=== PATIENT | male | born 1965 | race Caucasian/White ===

== ENCOUNTER 2019-03-12 20:41 | Emergency (ER) | payer OTHER ==
[~2019-03-12] VITALS: Ht 177.8 cm; Wt 86.2 kg
== END 2019-03-12 22:55 | disposition home or self-care (01) ==
LOC: ER 20:41
DX: M10.072 Idiopathic gout, left ankle and foot (principal)

== ENCOUNTER 2019-04-12 19:48 | Emergency (ER) | payer OTHER ==
[~2019-04-12] VITALS: Ht 177.8 cm; Wt 86.2 kg
[2019-04-12] MEDS ORDERED: PNEU16DI2 IM (20:09)
[2019-04-12] MEDS ORDERED: COLCRYS0.6 MG PO (20:10)
== END 2019-04-12 20:19 | disposition home or self-care (01) ==
LOC: ER 19:48
DX: M10.012 Idiopathic gout, left shoulder (principal)

== ENCOUNTER 2022-03-25 11:24 | Emergency (ER) | payer OTHER ==
[~2022-03-25] VITALS: Ht 177.8 cm; Wt 90.7 kg
[~2022-03-25 11:24] MED LIST: COLCRYS0.6 MG PO; PNEU16DI2 IM
== END 2022-03-25 16:04 | disposition home or self-care (01) ==
LOC: ER 11:24
DX: U07.1 COVID-19 (principal); B34.9 Viral infection, unspecified